=== PATIENT | male | born 1975 | race American Indian/Alaskan Native ===

== ENCOUNTER 2017-12-27 09:39 | Emergency (ER) | payer SELFPAY ==
[2017-12-27 10:25] LABS: Basophils % (Auto) 0.8 % (0.0-1.8); Eosinophils # (Auto) 0.4 K/mm3 (0.0-0.4); Eosinophils % (Auto) 8.5 % (0.0-4.3); Hematocrit 41.1 % (35.5-45.6); Hemoglobin 13.6 gm/dl (11.8-15.2); Lymphocytes # (Auto) 1.8 K/mm3 (1.2-5.4); Lymphocytes % (Auto) 40.4 % (13.4-35.0); Mean Corpuscular HGB Conc 33 % (32-34); Mean Corpuscular Hemoglobin 30 pg (28-32); Mean Corpuscular Volume 90 fl (84-94); Monocytes # (Auto) 0.7 K/mm3 (0.0-0.8); Monocytes % (Auto) 15.3 % (0.0-7.3); Platelet Count 186 K/mm3 (140-440); Red Blood Count 4.57 M/mm3 (3.65-5.03); Red Cell Distribution Width 14.2 % (13.2-15.2)
[2017-12-27 10:40] LABS: Alanine Aminotransferase 21 units/L (7-56); Albumin 4.1 g/dL (3.9-5); BUN/Creatinine Ratio 16; Blood Urea Nitrogen 11 mg/dL (9-20); Calcium 8.9 mg/dL (8.4-10.2); Hemolysis Index 3
[2017-12-27 11:17] LABS: Bilirubin,Urine NEG (Negative); Blood,Urine NEG (Negative); Color,Urine Yellow (Yellow); Protein,Urine <15 mg/dL mg/dL (Negative); RBC,Urine < 1.0 /HPF (0.0-6.0); Urobilinogen,Urine < 2.0 mg/dL (<2.0); WBC,Urine < 1.0 /HPF (0.0-6.0)
[2017-12-27] MEDS ORDERED: PROVENTIL IH ONE (11:44)
--- NOTE | 2017-12-27 11:55 | Emergency Department Report ---
ED Chest Pain HPI - General Chief Complaint: Abdominal Pain Stated Complaint: VOMITING BLOOD Time Seen by Provider: 12/27/17 11:23 Source: patient Mode of arrival: Wheelchair Limitations: No Limitations - History of Present Illness Initial Comments: 42-year-old male with no significant past medical history came in complaining of chest pain cough congestion. He states that he has been coughing and had some vomiting blood. Patient says that he's been having slight chest pain. He denies any nausea vomiting shortness of breath. He denies any belly pain. MD Complaint: chest pain Onset: during exertion Pain Location: left chest Pain Radiation: none Severity: mild Severity scale (0 -10): 1 Quality: aching Consistency: intermittent Improves With: nothing Worsens With: nothing Context: recent illness re: denies: nausea, vomting, diaphoresis, dyspnea, sense of impending doom Other Symptoms: cough (+ cough). denies: fever, syncope, rash, acid taste in mouth, leg swelling, palpitations, burping Treatments Prior to Arrival: none - Related Data Allergies Allergy/AdvReac Type Severity Reaction Status Date / Time Fish Containing Products Allergy Angioedema Verified 12/27/17 10:06 Heart Score - HEART Score History: Moderately suspicious EKG: Non-specific Age: < 45 Risk factors: 1-2 risk factors Troponin: 1-3x normal limit HEART Score: 4 ED Review of Systems ROS: Stated complaint: VOMITING BLOOD Other details as noted in HPI Constitutional: denies: chills, fever Eyes: denies: eye pain, eye discharge, vision change ENT: denies: ear pain, throat pain Respiratory: denies: cough, shortness of breath, wheezing Cardiovascular: denies: palpitations Endocrine: no symptoms reported Gastrointestinal: denies: abdominal pain, nausea, diarrhea Genitourinary: denies: urgency, dysuria Musculoskeletal: denies: back pain, joint swelling, arthralgia Skin: denies: rash, lesions Neurological: denies: headache, weakness, paresthesias Psychiatric: denies: anxiety, depression Hematological/Lymphatic: denies: easy bleeding, easy bruising ED Past Medical Hx - Past Medical History Previous Medical History?: No - Surgical History Past Surgical History?: No - Social History Smoking Status: Never Smoker ED Physical Exam - General Limitations: No Limitations General appearance: alert, in no apparent distress - Head Head exam: Present: atraumatic, normocephalic - Eye Eye exam: Present: normal appearance - ENT ENT exam: Present: mucous membranes moist - Neck Neck exam: Present: normal inspection - Respiratory Respiratory exam: Present: normal lung sounds bilaterally. Absent: respiratory distress - Expanded Respiratory Exam Expanded Location: Wheezes: Lower, Left, Right - Cardiovascular Cardiovascular Exam: Present: regular rate, normal rhythm. Absent: systolic murmur, diastolic murmur, rubs, gallop - GI/Abdominal GI/Abdominal exam: Present: soft, normal bowel sounds - Rectal Rectal exam: Present: deferred - Extremities Exam Extremities exam: Present: normal inspection - Back Exam Back exam: Present: normal inspection - Neurological Exam Neurological exam: Present: alert, oriented X3 - Psychiatric Psychiatric exam: Present: normal affect, normal mood - Skin Skin exam: Present: warm, dry, intact, normal color. Absent: rash ED Course Vital Signs 12/27/17 12/27/17 12/27/17 10:03 11:06 11:30 Temperature 98.7 F Pulse Rate 70 69 67 Pulse Rate [ Anterior Bilateral] Respiratory 16 15 21 Rate Respiratory Rate [Anterior Bilateral] Blood Pressure 160/95 145/76 O2 Sat by Pulse 98 97 96 Oximetry 12/27/17 12/27/17 12/27/17 12:00 12:36 12:44 Temperature Pulse Rate 62 68 Pulse Rate [ 65 Anterior Bilateral] Respiratory 16 11 L Rate Respiratory 18 Rate [Anterior Bilateral] Blood Pressure 145/76 145/76 O2 Sat by Pulse 98 99 Oximetry 12/27/17 12/27/17 13:00 13:30 Temperature Pulse Rate 73 69 Pulse Rate [ Anterior Bilateral] Respiratory 16 22 Rate Respiratory Rate [Anterior Bilateral] Blood Pressure 141/69 140/82 O2 Sat by Pulse 98 94 Oximetry ED Medical Decision Making - Lab Data Result diagrams: 12/27/17 10:09 12/27/17 10:09 - Medical Decision Making The patient is refusing admission. Patient's a complaint of chest pain and wants to go home. Patient will sign out AMA. All risks including explained. Critical care attestation.: If time is entered above; I have spent that time in minutes in the direct care of this critically ill patient, excluding procedure time. ED Disposition Clinical Impression: Chest pain, Upper respiratory infection Disposition: DC- LEFT AGAINST MED ADVICE Is pt being admited?: No Does the pt Need Aspirin: No Condition: Stable Instructions: Chest Pain (ED) Referrals: PRIMARY CARE, [Primary Care Provider] - 3-5 Days Forms: AMA Form Time of Disposition: 15:13
[2017-12-27 12:05] LABS: INR 0.91 (0.87-1.13)
[2017-12-27] MEDS ORDERED: BENADRYL ONE (12:12)
[2017-12-27] MEDS ORDERED: BENADRYL IV ONE (12:12)
--- NOTE | 2017-12-27 13:28 | Cat Scan Report ---
CTA CHEST: HISTORY: Rule out pulmonary embolus, pneumonia. COMPARISON: none. TECHNIQUE: Helical CT in 1.25mm intervals following IV contrast. Pulmonary embolus protocol. Sagittal and coronal reformatted images. Rotational MIP images. FINDINGS: Contrast bolus is satisfactory. No pulmonary embolus is identified. Thyroid gland: Normal. Tracheobronchial tree: Normal. Esophagus: Normal. Heart: Normal. Pericardium: Normal. Mediastinum: Normal. Lung Luu: normal. Pleural Spaces: Normal. Musculoskeletal: Normal. IMPRESSION: No evidence for pulmonary embolus. Unremarkable CT chest with contrast.
[2017-12-27 13:40] VITALS: BP 140/82
[2017-12-27] MEDS ORDERED: ZITHROMAX PO ONE (15:10)
== END 2017-12-27 15:44 | disposition left against medical advice (07) ==
LOC: ED 09:39
DX: R07.9 Chest pain, unspecified (principal); J06.9 Acute upper respiratory infection, unspecified; Z91.013 Allergy to seafood
CPT/HCPCS: 36415; 71275; 80053; 81001; 84484; 85025; 85610; 87116; 87400; 87430; 93005; 93010; 94640; 96374; 96375; 99284; J1200; J2930; Q9967

== ENCOUNTER 2018-10-28 08:34 | Emergency (ER) | payer SELFPAY ==
[2018-10-28 08:42] VITALS: BP 177/72
--- NOTE | 2018-10-28 09:52 | Emergency Department Report ---
ED ENT HPI - General Chief complaint: Dental/Oral Stated complaint: TOOTHACHE Time Seen by Provider: 10/28/18 09:37 Source: patient Mode of arrival: Ambulatory Limitations: No Limitations - History of Present Illness Initial comments: Patient is a 43-year-old [place] Citizen male who has pain at tooth #19 for the past 5 days. Patient states he's had some dental caries in this area however he's had intense pain for the last several days now swelling to the left side of his lower jaw. Patient denies any difficulty swallowing fevers chills nausea vomiting at this time. Patient states the pain is 9 out of 10 in severity. - Related Data Previous Rx's Medication Instructions Recorded Last Taken Type Clindamycin [Clindamycin CAP] 300 mg PO Q8H 7 Days cap 10/28/18 Unknown Rx HYDROcodone/APAP 5-325 [Wana 1 each PO Q4HR PRN #12 tablet 10/28/18 Unknown Rx 5/325] Ibuprofen [Motrin] 800 mg PO Q8HR PRN #20 tablet 10/28/18 Unknown Rx Allergies Allergy/AdvReac Type Severity Reaction Status Date / Time Fish Containing Products Allergy Angioedema Verified 12/27/17 10:06 seafood Allergy Swelling Uncoded 10/28/18 08:40 ED Dental HPI - General Chief complaint: Dental/Oral Stated complaint: TOOTHACHE Time Seen by Provider: 10/28/18 09:37 Source: patient Mode of arrival: Ambulatory Limitations: No Limitations - Related Data Previous Rx's Medication Instructions Recorded Last Taken Type Clindamycin [Clindamycin CAP] 300 mg PO Q8H 7 Days cap 10/28/18 Unknown Rx HYDROcodone/APAP 5-325 [Wana 1 each PO Q4HR PRN #12 tablet 10/28/18 Unknown Rx 5/325] Ibuprofen [Motrin] 800 mg PO Q8HR PRN #20 tablet 10/28/18 Unknown Rx Allergies Allergy/AdvReac Type Severity Reaction Status Date / Time Fish Containing Products Allergy Angioedema Verified 12/27/17 10:06 seafood Allergy Swelling Uncoded 10/28/18 08:40 ED Review of Systems ROS: Stated complaint: TOOTHACHE Other details as noted in HPI Comment: All other systems reviewed and negative ED Past Medical Hx - Past Medical History Previous Medical History?: No - Surgical History Past Surgical History?: No - Social History Smoking Status: Never Smoker Substance Use Type: None - Medications Home Medications: Home Medications Medication Instructions Recorded Confirmed Last Taken Type Clindamycin [Clindamycin CAP] 300 mg PO Q8H 7 Days cap 10/28/18 Unknown Rx HYDROcodone/APAP 5-325 [Wana 1 each PO Q4HR PRN #12 tablet 10/28/18 Unknown Rx 5/325] Ibuprofen [Motrin] 800 mg PO Q8HR PRN #20 tablet 10/28/18 Unknown Rx ED Physical Exam - General Limitations: No Limitations General appearance: alert, in no apparent distress - Head Head exam: Present: atraumatic, normocephalic - Eye Eye exam: Present: normal appearance - ENT ENT exam: Present: mucous membranes moist, other (patient has dental caries of tooth #19. There is some facial cellulitis present as well as pain with palpation to tooth #19 and some erythema and mild swelling to the gums.) - Neck Neck exam: Present: normal inspection - Respiratory Respiratory exam: Present: normal lung sounds bilaterally. Absent: respiratory distress - Cardiovascular Cardiovascular Exam: Present: regular rate, normal rhythm. Absent: systolic murmur, diastolic murmur, rubs, gallop - GI/Abdominal GI/Abdominal exam: Present: soft, normal bowel sounds - Rectal Rectal exam: Present: deferred - Extremities Exam Extremities exam: Present: normal inspection - Back Exam Back exam: Present: normal inspection - Neurological Exam Neurological exam: Present: alert, oriented X3 - Psychiatric Psychiatric exam: Present: normal affect, normal mood - Skin Skin exam: Present: warm, dry, intact, normal color. Absent: rash ED Course Vital Signs 10/28/18 08:40 Temperature 98.6 F Pulse Rate 78 Respiratory 20 Rate Blood Pressure 177/72 O2 Sat by Pulse 96 Oximetry ED Medical Decision Making - Medical Decision Making Patient with likely dental abscess. Patient started on antibiotics and given dental follow-up. Critical care attestation.: If time is entered above; I have spent that time in minutes in the direct care of this critically ill patient, excluding procedure time. ED Disposition Clinical Impression: Dental abscess, Facial cellulitis Disposition: TO HOME OR SELFCARE Is pt being admited?: No Does the pt Need Aspirin: No Condition: Stable Instructions: Dental Abscess (ED), Cellulitis (ED) Time of Disposition: 09:51
[2018-10-28] MEDS ORDERED: IBUPROFEN PO ONE (10:19)
[2018-10-28] MEDS ORDERED: IBUPROFEN ONE (10:19)
== END 2018-10-28 10:25 | disposition home or self-care (01) ==
LOC: ED 08:34
DX: K02.9 Dental caries, unspecified (principal); L03.211 Cellulitis of face; Z91.013 Allergy to seafood
CPT/HCPCS: 99282

== ENCOUNTER 2019-03-29 09:06 | Emergency (ER) | payer OTHER ==
[2019-03-29 09:11] VITALS: BP 167/91
[2019-03-29] MEDS ORDERED: LACTATED RINGERS 1,000 ML IV ONE (09:22)
[2019-03-29] MEDS ORDERED: ZOFRAN IV ONE (09:22)
[2019-03-29] MEDS ORDERED: LEVSIN SL SL ONE (09:22)
--- NOTE | 2019-03-29 09:24 | Emergency Department Report ---
ED Abdominal Pain HPI - General Chief Complaint: Abdominal Pain Stated Complaint: ABDOMINAL PAIN Time Seen by Provider: 03/29/19 09:21 Source: patient Mode of arrival: Ambulatory Limitations: No Limitations - History of Present Illness Initial Comments: and cramping, n/v/d since eating [employer]aco [place] four days ago no fever/urinary complaints MD Complaint: abdominal pain -: Gradual, days(s) (4) Location: diffuse Radiation: none Migration to: no migration Severity: moderate Severity scale (0 -10): 4 Quality: cramping, aching Consistency: constant Improves With: nothing Worsens With: nothing Associated Symptoms: nausea, vomiting, diarrhea - Related Data Previous Rx's Medication Instructions Recorded Last Taken Type Hyoscyamine Subl [Levsin Sl 0.125 0.125 mg SL Q6HR #12 tab 03/29/19 Unknown Rx TAB] Promethazine [Phenergan] 25 mg PO Q6HR PRN #12 tab 03/29/19 Unknown Rx metFORMIN [Glucophage] 500 mg PO BID #60 tablet 03/29/19 Unknown Rx traMADol [Ultram 50 MG tab] 50 mg PO Q6HR PRN #12 tablet 03/29/19 Unknown Rx Allergies Allergy/AdvReac Type Severity Reaction Status Date / Time Fish Containing Products Allergy Angioedema Verified 03/29/19 09:08 seafood Allergy Swelling Uncoded 10/28/18 08:40 ED Review of Systems ROS: Stated complaint: ABDOMINAL PAIN Other details as noted in HPI Comment: All other systems reviewed and negative Gastrointestinal: as per HPI ED Past Medical Hx - Past Medical History Previous Medical History?: No - Surgical History Past Surgical History?: No - Social History Smoking Status: Current Every Day Smoker - Medications Home Medications: Home Medications Medication Instructions Recorded Confirmed Last Taken Type Hyoscyamine Subl [Levsin Sl 0.125 0.125 mg SL Q6HR #12 tab 03/29/19 Unknown Rx TAB] Promethazine [Phenergan] 25 mg PO Q6HR PRN #12 tab 03/29/19 Unknown Rx metFORMIN [Glucophage] 500 mg PO BID #60 tablet 03/29/19 Unknown Rx traMADol [Ultram 50 MG tab] 50 mg PO Q6HR PRN #12 tablet 03/29/19 Unknown Rx ED Physical Exam - General Limitations: No Limitations General appearance: alert, in no apparent distress - Head Head exam: Present: atraumatic, normocephalic - Eye Eye exam: Present: normal appearance - ENT ENT exam: Present: mucous membranes dry - Neck Neck exam: Present: normal inspection. Absent: meningismus - Respiratory Respiratory exam: Present: normal lung sounds bilaterally. Absent: respiratory distress - Cardiovascular Cardiovascular Exam: Present: regular rate, normal rhythm. Absent: systolic murmur, diastolic murmur, rubs, gallop - GI/Abdominal GI/Abdominal exam: Present: soft, tenderness (mild diffuse), normal bowel sounds. Absent: distended, guarding, rebound, rigid - Rectal Rectal exam: Present: deferred - Extremities Exam Extremities exam: Present: normal inspection - Back Exam Back exam: Present: normal inspection - Neurological Exam Neurological exam: Present: alert, oriented X3 - Psychiatric Psychiatric exam: Present: normal affect, normal mood - Skin Skin exam: Present: warm, dry, intact, normal color. Absent: rash ED Course Vital Signs 03/29/19 09:10 Temperature 98 F Pulse Rate 75 Respiratory 18 Rate Blood Pressure 167/91 O2 Sat by Pulse 97 Oximetry - Reevaluation(s) Reevaluation #1: 03/29/19 10:02 advised on glucose, A1c pending now also notes some leg pain after a fall, proximal L tib/fib requesting x-ray ED Medical Decision Making - Lab Data Result diagrams: 03/29/19 09:25 03/29/19 09:25 - Radiology Data Radiology results: report reviewed, image reviewed normal KUB nonspecific sclerotic finding on plain film of leg but only seen on one view - Medical Decision Making nvd, cramping x 4 days labs pending, receiving IVF, zofran, levsin lengthy discussion regarding glucose control, monitoring, close f/u return precautions given nonspecific finding on leg x-ray, fx considered less likely and patient ambulatory, however splint/crutches offered and refused. encourage outpatient follow up - Differential Diagnosis gastroenteritis, colitis, dehydration, unlikely appendicitis Critical care attestation.: If time is entered above; I have spent that time in minutes in the direct care of this critically ill patient, excluding procedure time. ED Disposition Clinical Impression: Diabetes mellitus, new onset, Gastroenteritis Leg injury Qualifiers: Encounter type: initial encounter Laterality: left Qualified Code(s): S89.92XA - Unspecified injury of left lower leg, initial encounter Disposition: DC-01 TO HOME OR SELFCARE Is pt being admited?: No Condition: Good Instructions: Diabetes Mellitus Type 2 in Adults (ED), Food Poisoning (ED), How to Check Your Blood Sugar (ED) Additional Instructions: Your glucose today was 405. Your a1c is 12.8. This is indicative of new onset diabetes, uncontrolled. You are encouraged to monitor daily carbohydrate intake, obtain a glucose monitor and check your sugar daily. You will also be prescribed metformin- this should be taken twice daily. Keep log of glucose readings and obtain close follow up with a primary care provider within the next 5 days. Your leg x-ray showed a nonspecific sclerotic area only seen on one view. Would encourage orthopedic follow up for further evaluation. Prescriptions: metFORMIN [Glucophage] 500 mg PO BID #60 tablet Hyoscyamine Subl [Levsin Sl 0.125 TAB] 0.125 mg SL Q6HR #12 tab Promethazine [Phenergan] 25 mg PO Q6HR PRN #12 tab PRN Reason: Nausea traMADol [Ultram 50 MG tab] 50 mg PO Q6HR PRN #12 tablet PRN Reason: Pain Referrals: TACHO POSEY MD [Primary Care Provider] - 3-5 Days Time of Disposition: 12:04
[2019-03-29 09:33] LABS: Basophils % (Auto) 0.5 % (0.0-1.8); Eosinophils # (Auto) 0.1 K/mm3 (0.0-0.4); Eosinophils % (Auto) 2.3 % (0.0-4.3); Hemoglobin 15.1 gm/dl (11.8-15.2); Lymphocytes # (Auto) 1.7 K/mm3 (1.2-5.4); Lymphocytes % (Auto) 34.2 % (13.4-35.0); Mean Corpuscular HGB Conc 35 % (32-34); Mean Corpuscular Volume 91 fl (84-94); Monocytes # (Auto) 0.4 K/mm3 (0.0-0.8); Monocytes % (Auto) 9.1 % (0.0-7.3); Platelet Count 205 K/mm3 (140-440); Red Blood Count 4.73 M/mm3 (3.65-5.03); Red Cell Distribution Width 13.3 % (13.2-15.2)
[2019-03-29 09:50] LABS: Alanine Aminotransferase 16 units/L (7-56); Albumin 4.2 g/dL (3.9-5); BUN/Creatinine Ratio 13; Blood Urea Nitrogen 10 mg/dL (9-20); Calcium 9.1 mg/dL (8.4-10.2); Hemolysis Index 3
--- NOTE | 2019-03-29 11:03 | XRay Report ---
PROCEDURE: XR ABDOMEN 1V AP TECHNIQUE: Supine abdomen HISTORY: abd pain COMPARISON: None FINDINGS: The bowel gas pattern is nonspecific and nonobstructive. There is air and stool in normal caliber col on. There is minimal gas scattered in small bowel. There are no suspicious calcifications seen. There are some degenerative changes involving the hips. IMPRESSION: Nonspecific, nonobstructive abdomen. This document is electronically signed by Angy Smith MD., March 29 2019 11:00:59 AM ET
--- NOTE | 2019-03-29 11:47 | XRay Report ---
PROCEDURE: XR TIBIA FIBULA 2V LT TECHNIQUE: AP and lateral views of the left lower leg. HISTORY: leg pain, fall COMPARISON: None FINDINGS: There is no acute tibial or fibular fracture seen. Frontal view demonstrates some sclerotic change involving the proximal tibial shaft. This area is not included on the ktiic-lp-lead of the lateral image. Nevertheless suggests a benign finding. IMPRESSION: Some linear sclerotic change on the frontal image involving proximal tibia. This area no t included on the lateral view. Unless this is the region of patient's pain, significance is doubtful . Correlate clinically. This document is electronically signed by Angy Smith MD., March 29 2019 11:45:45 AM ET
== END 2019-03-29 12:20 | disposition home or self-care (01) ==
LOC: ED 09:06
DX: S89.92XA Unspecified injury of left lower leg, initial encounter (principal); K52.9 Noninfective gastroenteritis and colitis, unspecified; E11.9 Type 2 diabetes mellitus without complications; F17.200 Nicotine dependence, unspecified, uncomplicated; Z91.013 Allergy to seafood; X58.XXXA Exposure to other specified factors, initial encounter; Y93.89 Activity, other specified; Y92.89 Other specified places as the place of occurrence of the external cause; Y99.8 Other external cause status
CPT/HCPCS: 36415; 73590; 74018; 80053; 83036; 83690; 85025; 96361; 96374; 99284; J2405; J7120

== ENCOUNTER 2019-07-10 11:43 | Emergency (ER) | payer SELFPAY ==
[2019-07-10 12:06] VITALS: BP 156/90
--- NOTE | 2019-07-10 12:07 | Event Note ---
ED Screening Note Date of service: 07/10/19 Time: 12:03 ED Screening Note: 44 y/o male c/o left knee pain times 1.5 months. Took Advail for pain. This initial assessment/diagnostic orders/clinical plan/treatment(s) is/are subject to change based on patients health status, clinical progression and re- assessment by fellow clinical providers in the ED. Further treatment and workup at subsequent clinical providers discretion. Patient/guardian urged not to elope from the ED as their condition may be serious if not clinically assessed and managed. Initial orders include:
--- NOTE | 2019-07-10 12:34 | XRay Report ---
LEFT KNEE, 3 VIEWS INDICATION: left knee pain. COMPARISON: None. IMPRESSION: No acute osseous or soft tissue abnormality. No significant degenerative joint diseas e. Prominent spurs/enthesophytes are noted along the superior and inferior borders of the patella. Signer Name: Germain Siegel Jr, MD Signed: 07/10/2019 12:29 PM Workstation Name: [id number]
--- NOTE | 2019-07-10 13:02 | Emergency Department Report ---
ED Lower Extremity HPI - General Chief Complaint: Extremity Problem,Nontraumatic Stated Complaint: LT KNEE PAIN Time Seen by Provider: 07/10/19 12:03 Source: patient Mode of arrival: Ambulatory Limitations: No Limitations - History of Present Illness Initial Comments: Mr. Jay is a healthy 44-year-old male without significant past medical history who presents with 3 weeks of left knee pain. No injury. Mild swelling. 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 He also has abnormal growth on his toenail of the left big toe. MD Complaint: other (left knee pain) -: week(s) (3) Injury: Knee: Left Type of Injury: unknown Place: home, work Severity: moderate Severity scale (0 -10): 6 Improves With: nothing Worsens With: nothing Context: other (no direct injury, gradual onset for the past 3 weeks) Associated Symptoms: ambulatory - Related Data Previous Rx's Medication Instructions Recorded Last Taken Type Hyoscyamine Subl [Levsin Sl 0.125 0.125 mg SL Q6HR #12 tab 03/29/19 Unknown Rx TAB] Promethazine [Phenergan] 25 mg PO Q6HR PRN #12 tab 03/29/19 Unknown Rx metFORMIN [Glucophage] 500 mg PO BID #60 tablet 03/29/19 Unknown Rx traMADol [Ultram 50 MG tab] 50 mg PO Q6HR PRN #12 tablet 03/29/19 Unknown Rx Allergies Allergy/AdvReac Type Severity Reaction Status Date / Time Fish Containing Products Allergy Angioedema Verified 03/29/19 09:08 seafood Allergy Swelling Uncoded 10/28/18 08:40 ED Review of Systems ROS: Stated complaint: LT KNEE PAIN Other details as noted in HPI Constitutional: denies: fever, malaise Respiratory: denies: shortness of breath Cardiovascular: denies: chest pain Musculoskeletal: arthralgia Skin: rash, lesions, change in hair/nails ED Past Medical Hx - Past Medical History Previous Medical History?: No - Surgical History Past Surgical History?: No - Social History Smoking Status: Never Smoker Substance Use Type: None - Medications Home Medications: Home Medications Medication Instructions Recorded Confirmed Last Taken Type Hyoscyamine Subl [Levsin Sl 0.125 0.125 mg SL Q6HR #12 tab 03/29/19 Unknown Rx TAB] Promethazine [Phenergan] 25 mg PO Q6HR PRN #12 tab 03/29/19 Unknown Rx metFORMIN [Glucophage] 500 mg PO BID #60 tablet 03/29/19 Unknown Rx traMADol [Ultram 50 MG tab] 50 mg PO Q6HR PRN #12 tablet 03/29/19 Unknown Rx ED Physical Exam - General Limitations: No Limitations General appearance: alert, in no apparent distress - Head Head exam: Present: atraumatic, normocephalic - Eye Eye exam: Present: normal appearance - Respiratory Respiratory exam: Absent: respiratory distress - Extremities Exam Extremities exam: Present: other (left knee: Small amount of swelling small effusion full range of motion extension and flexion no laxity no erythema no warmth) - Neurological Exam Neurological exam: Present: alert, oriented X3 - Psychiatric Psychiatric exam: Present: normal affect, normal mood - Skin Skin exam: Present: warm, dry, intact, normal color ED Course Vital Signs 07/10/19 12:03 Temperature 98.4 F Pulse Rate 65 Respiratory 16 Rate Blood Pressure 156/90 O2 Sat by Pulse 99 Oximetry ED Lower Extremity MDM - Radiology Data Radiology results: report reviewed Radiology impression: Left knee radiographs bone spurs at the patella no fracture or acute abnormality otherwise no other degenerative changes - Medical Decision Making Left knee pain and mild swelling differential diagnosis includes cartilage injury meniscus derangement versus arthritis Left great toe onychomycosis referred to ankle desktop support specialist Critical care attestation.: If time is entered above; I have spent that time in minutes in the direct care o f this critically ill patient, excluding procedure time. ED Disposition Clinical Impression: Left knee pain, Onychomycosis of left great toe Disposition: - TO HOME OR SELFCARE Is pt being admited?: No Does the pt Need Aspirin: No Condition: Stable Instructions: Knee Pain (ED) Additional Instructions: you have a fungal infection of the ear left great toe. You will need to see an ankle and desktop support specialist. Please use the referral provided. Referrals: BOBBY TIRADO MD [Staff Physician] - 3-5 Days DOREEN CERVANTES DPM [Staff Physician] - 3-5 Days Forms: Work/School Release Form(ED)
== END 2019-07-10 13:52 | disposition home or self-care (01) ==
LOC: ED 11:43
DX: M25.562 Pain in left knee (principal); B35.1 Tinea unguium; Z91.013 Allergy to seafood

== ENCOUNTER 2019-10-24 12:30 | Emergency (ER) | payer SELFPAY ==
[2019-10-24 13:19] VITALS: BP 159/92
--- NOTE | 2019-10-24 13:19 | Emergency Department Report ---
Chief Complaint: High BP Stated Complaint: HIGH BP Time Seen by Provider: 10/24/19 13:11 - HPI History of Present Illness: This is a 44 y.o. M. that presents to the ER with elevated blood pressure. 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 He ran out blood pressure medicine 1 week ago. He no longer have a PCP for follow up. Denies chest pain, palpitations, shortness of breath, headache, dizziness, or visual changes. - Exam Vital Signs: Vital Signs 10/24/19 13:12 Temperature 98.5 F Pulse Rate 66 Respiratory 16 Rate Blood Pressure 159/92 O2 Sat by Pulse 99 Oximetry MSE screening note: Focused history and physical exam performed. Due to findings the following was ordered: ED Disposition for MSE Disposition: DC-01 TO HOME OR SELFCARE Is pt being admited?: No Condition: Stable
--- NOTE | 2019-10-24 14:12 | Emergency Department Report ---
Chief Complaint: High BP Stated Complaint: HIGH BP Time Seen by Provider: 10/24/19 13:11 - HPI History of Present Illness: Mr. Jay is a 44-year-old male with history of diabetes mellitus and hypertension who desires refill of his blood pressure medication. He is currently symptom-free. He does not currently have a nosebleed which resolved spontaneously on yesterday. I referred him to the outpatient clinic. He currently does not have a life or limb threatening condition. Medical screening exam completed. - Exam Vital Signs: Vital Signs 10/24/19 13:12 Temperature 98.5 F Pulse Rate 66 Respiratory 16 Rate Blood Pressure 159/92 O2 Sat by Pulse 99 Oximetry MSE screening note: Focused history and physical exam performed. Due to findings the following was ordered: ED Disposition for MSE Clinical Impression: Hypertension Disposition: Z-07 MED SCREENING EXAM-LEFT Condition: Stable Additional Instructions: Please see Dr. Arceo for a refill of your blood pressure and diabetes medications. Referrals: AAYUSH ARCEO MD [Staff Physician] - 3-5 Days
== END 2019-10-24 14:30 | disposition left against medical advice (07) ==
LOC: ED 12:30
DX: I10 Essential (primary) hypertension (principal); Z76.0 Encounter for issue of repeat prescription; E11.9 Type 2 diabetes mellitus without complications
CPT/HCPCS: 82962; 99282

== ENCOUNTER 2019-12-09 08:32 | Emergency (ER) | payer SELFPAY ==
--- NOTE | 2019-12-09 10:27 | Emergency Department Report ---
Chief Complaint: Upper Respiratory Infection Stated Complaint: FLU Time Seen by Provider: 12/09/19 10:21 - HPI History of Present Illness: 44-year-old -[place] male presents to the emergency room for cough that he has had intermittently for 2 weeks. Patient has not taken anything but Lemus's cough drops. Patient denies any fever chills no nausea no vomiting no sweating note recent travels. - Exam Physical Exam: Gen: alert oriented NAD Cardic: regular rate and rhythm no murmurs appreciated Resp: Clear to auscultation bilateral no wheezing no rales or rhonchi. Abdomen: Soft nontender nondistended normal bowel sounds. MSE screening note: Focused history and physical exam performed. Due to findings the following was ordered: 44-year-old -[place] male presents to the emergency room for cough that he has had intermittently for 2 weeks. Patient has not taken anything but Lemus's cough drops. Patient denies any fever chills no nausea no vomiting no sweating note recent travels. Commend patient to take oeld-gvo-oahvint Robitussin or Mucinex for cough and to follow-up with a primary care provider. ED Disposition for MSE Clinical Impression: Cough Disposition: Z-07 MED SCREENING EXAM-LEFT Is pt being admited?: No Does the pt Need Aspirin: No Condition: Stable Instructions: Guaifenesin (By mouth) Additional Instructions: Recommend [id number] Robitussin or Mucinex increase your vitamin C follow- up with your primary care provider. Referrals: PRIMARY FRANTZ, [Primary Care Provider] - 3-5 Days AAYUSH GARCIA MD [Staff Physician] - 3-5 Days
[2019-12-09 10:40] VITALS: BP 158/92
== END 2019-12-09 10:39 | disposition left against medical advice (07) ==
LOC: ED 08:32
DX: R05 Cough (principal); I10 Essential (primary) hypertension; Z91.013 Allergy to seafood
CPT/HCPCS: 99282

== ENCOUNTER 2020-02-02 08:04 | Emergency (ER) | payer SELFPAY ==
[2020-02-02 08:18] VITALS: BP 168/94
--- NOTE | 2020-02-02 08:32 | Emergency Department Report ---
<SHANTI MURRELL - Last Filed: 02/02/20 08:34> ED General Adult HPI - General Chief complaint: Dental/Oral Stated complaint: LEFT SIDE FACE SWELLING Time Seen by Provider: 02/02/20 08:21 Source: patient Mode of arrival: Ambulatory Limitations: No Limitations - History of Present Illness Initial comments: 44-year-old -Green[place] male presents to the emergency room for left-sided facial swelling and pain for 5 days. Patient reports he is unaware of any dental issues. Patient states that the swelling is from his nose to under his eyes and to the up with his cheek. Patient reports pain when you palpate just under his nose. Patient reports that he took Benadryl last dose was on Sunday. Review patient's chart I noticed that patient was diagnosed with diabetes but patient has not taken any medications in about 8 months. Patient states that he never followed up after he ran out of prescriptions. It was noted that patient's blood sugar was 298 on a fingerstick here. Onset/Timin -: days(s) Location: face Severity scale (0 -10): 8 Quality: aching Consistency: constant Improves with: none Worsens with: none Treatments Prior to Arrival: none - Related Data Previous Rx's Medication Instructions Recorded Last Taken Type Hyoscyamine Subl [Levsin Sl 0.125 0.125 mg SL Q6HR #12 tab 03/29/19 Unknown Rx TAB] Promethazine [Phenergan] 25 mg PO Q6HR PRN #12 tab 03/29/19 Unknown Rx traMADoL [Ultram 50 MG tab] 50 mg PO Q6HR PRN #12 tablet 03/29/19 Unknown Rx Clindamycin [Clindamycin CAP] 300 mg PO Q8H 10 Days #30 capsule 02/02/20 Unknown Rx metFORMIN [Glucophage] 500 mg PO BID #60 tablet 02/02/20 Unknown Rx Allergies Allergy/AdvReac Type Severity Reaction Status Date / Time Fish Containing Products Allergy Angioedema Verified 03/29/19 09:08 seafood Allergy Swelling Uncoded 10/28/18 08:40 ED Review of Systems Comment: All other systems reviewed and negative ED Past Medical Hx - Past Medical History Previous Medical History?: Yes Hx Hypertension: Yes - Surgical History Past Surgical History?: No - Social History Smoking Status: Never Smoker Substance Use Type: None - Medications Home Medications: Home Medications Medication Instructions Recorded Confirmed Last Taken Type Hyoscyamine Subl [Levsin Sl 0.125 0.125 mg SL Q6HR #12 tab 03/29/19 Unknown Rx TAB] Promethazine [Phenergan] 25 mg PO Q6HR PRN #12 tab 03/29/19 Unknown Rx traMADoL [Ultram 50 MG tab] 50 mg PO Q6HR PRN #12 tablet 03/29/19 Unknown Rx Clindamycin [Clindamycin CAP] 300 mg PO Q8H 10 Days #30 capsule 02/02/20 Unknown Rx metFORMIN [Glucophage] 500 mg PO BID #60 tablet 02/02/20 Unknown Rx ED Physical Exam - General Limitations: No Limitations ED Medical Decision Making - Medical Decision Making 44-year-old -[place]ic male presents to the emergency room for left-sided facial swelling and pain for 5 days. Patient reports he is unaware of any dental issues. Patient states that the swelling is from his nose to under his eyes and to the up with his cheek. Patient reports pain when you palpate just under his nose. Patient reports that he took Benadryl last dose was on Sunday. Review patient's chart I noticed that patient was diagnosed with diabetes but patient has not taken any medications in about 8 months. Patient states that he never followed up after he ran out of prescriptions. It was noted that patient's blood sugar was 298 on a fingerstick here. Case review with Dr. Jackson supervising physician. She came to evaluate patient she agrees with my plan patient be discharged with specific orders. Patient will be placed on clindamycin 300 mg 3 times daily for 10 days. Patient will be restarted back on his metformin 500 mg twice daily and instructed to follow-up with Dr. Gianfranco Magana internal medicine provider. Education on a significance of having diabetes and increased risk for heart attack strokes end- stage renal disease that can lead to dialysis as well as increased infections. Patient can take Tylenol or ibuprofen as needed for pain management. 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 Take your diabetes medicine which is metformin as prescribed. It is very important for you to follow-up with a primary care provider before your prescription runs out. You can take ibuprofen as needed for pain management. Increase your water intake. Avoid drinking alcohol, sodas, juices and follow a low carbohydrate diet. Prescriptions: Clindamycin [Clindamycin CAP] 300 mg PO Q8H 10 Days #30 capsule metFORMIN [Glucophage] 500 mg PO BID #60 tablet Referrals: PRIMARY MD FRANTZ [Primary Care Provider] - 3-5 Days AAYUSH GARCIA MD [Staff Physician] - 3-5 Days Forms: Work/School Release Form(ED) <FOUZIA JACKSON - Last Filed: 02/05/20 06:49> ED Review of Systems ROS: Stated complaint: LEFT SIDE FACE SWELLING Other details as noted in HPI ED Physical Exam - Other Other exam information: focused exam preformed by id face/head exam: pt has a focal erythematous indurated raised/nodular area just at the entrance of the left nostril that is tender to palpation. No fluctuance or drainage. Patient does have mild left-sided facial swelling adjacent to the nose and infraorbital area that does not have erythema or significant tenderness to this area.. Is likely that this area is source of infection and does not appear to be fluctuant at that time. Warm compress advised with antibiotics and restarting metformin. Patient denies fever. Last tetanus unknown. Tetanus provided as well. Pt may require drainage of the area in the future ED Course Vital Signs 02/02/20 08:15 Temperature 98.7 F Pulse Rate 67 Respiratory 16 Rate Blood Pressure 168/94 O2 Sat by Pulse 98 Oximetry ED Medical Decision Making - Medical Decision Making focused exam preformed by id face/head exam: pt has a focal erythematous indurated raised/nodular area just at the entrance of the left nostril that is tender to palpation. No fluctuance or drainage. Patient does have mild left-sided facial swelling adjacent to the nose and infraorbital area that does not have erythema or significant tenderness to this area.. Is likely that this area is source of infection and does not appear to be fluctuant at that time. Warm compress advised with antibiotics and restarting metformin. Patient denies fever. Last tetanus unknown. Tetanus provided as well. Pt may require drainage of the area in the future Critical care attestation.: If time is entered above; I have spent that time in minutes in the direct care of this critically ill patient, excluding procedure time.
[2020-02-02] MEDS ORDERED: CLINDAMYCIN 300 MG CAP PO ONE (08:46)
[2020-02-02] MEDS ORDERED: metFORMIN 500 MG TAB PO ONE (08:46)
[2020-02-02] MEDS ORDERED: DIPHtheria,PERTUSSIS(ACELL),TETANUS VACCINE/PF 0.5 ML VIAL IM ONE (08:48)
[2020-02-02] MEDS ORDERED: IBUPROFEN 600 MG TAB PO ONE (08:50)
== END 2020-02-02 09:25 | disposition home or self-care (01) ==
LOC: ED 08:04
DX: R22.0 Localized swelling, mass and lump, head (principal); J34.89 Other specified disorders of nose and nasal sinuses; I10 Essential (primary) hypertension; Z79.2 Long term (current) use of antibiotics; Z79.899 Other long term (current) drug therapy; Z91.013 Allergy to seafood
CPT/HCPCS: 82962; 90471; 90715; 99282

== ENCOUNTER 2020-12-23 13:04 | Emergency (ER) | payer MEDICAID ==
--- NOTE | 2020-12-23 13:45 | Event Note ---
ED Screening Note Date of service: 12/23/20 Time: 13:45 ED Screening Note: 45-year-old -Nepalese male with a past medical history hypertension CVA presents to the emergency room for painful urination with bleeding. Patient has his medications with him. This initial assessment/diagnostic orders/clinical plan/treatment(s) is/are subject to change based on patients health status, clinical progression and re- assessment by fellow clinical providers in the ED. Further treatment and workup at subsequent clinical providers discretion. Patient/guardian urged not to elope from the ED as their condition may be serious if not clinically assessed and managed. Initial orders include:
[2020-12-23 14:24] LABS: Bilirubin,Urine NEG (Negative); Blood,Urine MOD (Negative); Color,Urine Yellow (Yellow); Mucus,Urine FEW /HPF; Protein,Urine <15 mg/dL mg/dL (Negative)
[2020-12-23] MEDS ORDERED: HYDROcodone/ACETAMINOPHEN 5-325 MG TAB PO ONE (17:24)
--- NOTE | 2020-12-23 17:27 | Emergency Department Report ---
ED General Adult HPI - General Chief complaint: Back Pain/Injury Stated complaint: BACK/GINO LEG PAIN/PELVIC PAIN Time Seen by Provider: 12/23/20 17:06 Source: patient Mode of arrival: Ambulatory Limitations: Physical Limitation - History of Present Illness Initial comments: This is a 45-year-old type II diabetic male with a history of previous stroke. He appears to be frustrated and somewhat emotionally labile and impatient. He tells me that he went to his primary care doctor who "did not give him anything for pain". He states he has been having back pain for least 3 weeks. Apparently his medical screening exam already included a swab for GC and chlamydia. Urinalysis has returned showing greater than 500 glucose, 4 RBCs and 13 WBCs. He states that over the last few days he has had dysuria and blood in his urine. He is very difficult historian due to some dysarthria/lability issues as above described. -: days(s), week(s) Location: back Radiation: non-radiation Quality: aching Consistency: intermittent Improves with: none Worsens with: none Associated Symptoms: denies other symptoms (Except as above described) - Related Data Previous Rx's Medication Instructions Recorded Last Taken Type Hyoscyamine Subl [Levsin Sl 0.125 0.125 mg SL Q6HR #12 tab 03/29/19 Unknown Rx TAB] Promethazine [Phenergan] 25 mg PO Q6HR PRN #12 tab 03/29/19 Unknown Rx Clindamycin [Clindamycin CAP] 300 mg PO Q8H 10 Days #30 capsule 02/02/20 Unknown Rx metFORMIN [Glucophage] 500 mg PO BID #60 tablet 02/02/20 Unknown Rx cefUROXime [Ceftin] 250 mg PO Q12H #14 tablet 12/23/20 Unknown Rx traMADoL [Ultram 50 MG tab] 50 mg PO Q6HR PRN #12 tablet 12/23/20 Unknown Rx Allergies Allergy/AdvReac Type Severity Reaction Status Date / Time Fish Containing Products Allergy Angioedema Verified 12/23/20 13:22 seafood AdvReac Unknown Swelling Uncoded 12/23/20 13:22 ED Review of Systems ROS: Stated complaint: BACK/GINO LEG PAIN/PELVIC PAIN Other details as noted in HPI Comment: Unobtainable due to pts medical conditions (Limited due to dysarthria/CVA) Constitutional: denies: chills, fever Respiratory: denies: cough, orthopnea, shortness of breath Cardiovascular: denies: chest pain, edema Gastrointestinal: denies: abdominal pain, nausea, vomiting Neurological: denies: headache, weakness, numbness Psychiatric: as per HPI ED Past Medical Hx - Past Medical History Hx Hypertension: Yes - Social History Smoking Status: Never Smoker Substance Use Type: None - Medications Home Medications: Home Medications Medication Instructions Recorded Confirmed Last Taken Type Hyoscyamine Subl [Levsin Sl 0.125 0.125 mg SL Q6HR #12 tab 03/29/19 Unknown Rx TAB] Promethazine [Phenergan] 25 mg PO Q6HR PRN #12 tab 03/29/19 Unknown Rx Clindamycin [Clindamycin CAP] 300 mg PO Q8H 10 Days #30 capsule 02/02/20 Unknown Rx metFORMIN [Glucophage] 500 mg PO BID #60 tablet 02/02/20 Unknown Rx cefUROXime [Ceftin] 250 mg PO Q12H #14 tablet 12/23/20 Unknown Rx traMADoL [Ultram 50 MG tab] 50 mg PO Q6HR PRN #12 tablet 12/23/20 Unknown Rx ED Physical Exam - General Limitations: Physical Limitation General appearance: alert, in no apparent distress, obese - Head Head exam: Present: atraumatic, normocephalic - Eye Eye exam: Present: normal appearance. Absent: scleral icterus - ENT ENT exam: Present: mucous membranes moist - Neck Neck exam: Present: normal inspection. Absent: meningismus - Respiratory Respiratory exam: Present: normal lung sounds bilaterally. Absent: respiratory distress - Cardiovascular Cardiovascular Exam: Present: regular rate, normal rhythm. Absent: systolic murmur, diastolic murmur, rubs, gallop - GI/Abdominal GI/Abdominal exam: Present: soft, normal bowel sounds. Absent: distended, tenderness, guarding, rebound, rigid - Rectal Rectal exam: Present: deferred - Extremities Exam Extremities exam: Present: normal inspection - Back Exam Back exam: Present: normal inspection. Absent: CVA tenderness (R), CVA tenderness (L), muscle spasm, paraspinal tenderness, vertebral tenderness - Neurological Exam Neurological exam: Present: alert, oriented X3, other (Partial left facial paresis, dysarthria, no acute focal deficit) - Psychiatric Psychiatric exam: Present: agitated, flat affect - Skin Skin exam: Present: warm, dry, intact, normal color. Absent: rash ED Course Vital Signs 12/23/20 12/23/20 13:20 17:42 Temperature 99.0 F Pulse Rate 68 64 Respiratory 18 16 Rate Blood Pressure 146/74 Blood Pressure 146/72 [Left] O2 Sat by Pulse 98 98 Oximetry ED Medical Decision Making - Lab Data Result diagrams: 12/23/20 17:32 12/23/20 17:32 Laboratory Results - last 24 hr 12/23/20 12/23/20 12/23/20 17:32 17:32 Unknown WBC 5.7 RBC 3.99 Hgb 12.5 Hct 35.9 MCV 90 MCH 31 MCHC 35 H RDW 13.9 Plt Count 175 Lymph % (Auto) 46.7 H [place] % (Auto) 9.6 H Eos % (Auto) 3.7 Baso % (Auto) 0.3 Lymph # (Auto) 2.7 [place] # (Auto) 0.5 Eos # (Auto) 0.2 Baso # (Auto) 0.0 Seg Neutrophils % 39.7 L Seg Neutrophils # 2.3 Sodium 137 Potassium 3.9 Chloride 100.0 Carbon Dioxide 32 H Anion Gap 9 BUN 11 Creatinine 0.9 Estimated GFR > 60 BUN/Creatinine Ratio 12 Glucose 280 H Calcium 8.9 Urine Color Yellow Urine Turbidity Clear Urine pH 5.0 [address] Specific [employer] 1.023 Urine Protein <15 mg/dl Urine Glucose (UA) >=500 Urine Ketones Neg Urine Blood Mod Urine Nitrite Neg Urine Bilirubin Neg Urine Urobilinogen 4.0 Ur Leukocyte Esterase Neg Urine WBC (Auto) 4.0 Urine RBC (Auto) 13.0 U Epithel Cells (Auto) 1.0 Urine Mucus Few - Radiology Data Radiology results: report reviewed (CT of the abdomen and pelvis showed no acute process) Critical care attestation.: If time is entered above; I have spent that time in minutes in the direct care of this critically ill patient, excluding procedure time. ED Disposition Clinical Impression: Acute cystitis Qualifiers: Hematuria presence: with hematuria Qualified Code(s): N30.01 - Acute cystitis with hematuria Back pain Qualifiers: Back pain location: low back pain Chronicity: chronic Back pain laterality: bilateral Sciatica presence: without sciatica Qualified Code(s): M54.5 - Low back pain; G89.29 - Other chronic pain Hyperglycemia due to type 2 diabetes mellitus Qualifiers: Diabetes mellitus alf insulin use: without alf use Qualified Code(s): E11.65 - Type 2 diabetes mellitus with hyperglycemia Disposition: DC- TO HOME OR SELFCARE Is pt being admited?: No Does the pt Need Aspirin: No Condition: Stable Instructions: Diabetes Mellitus Type 2 in Adults (ED), Urinary Tract Infection, Adult, [id number], Back Injury Prevention, Blood Glucose Monitoring, Adult Additional Instructions: Follow-up with your clinic. Follow-up on your urine culture test which takes 2 to 3 days to complete. Avoid sugary drinks with your diabetes. Monitor your sugar. Rx as directed. Return fever chills or any acute change or problem. Prescriptions: cefUROXime [Ceftin] 250 mg PO Q12H #14 tablet traMADoL [Ultram 50 MG tab] 50 mg PO Q6HR PRN #12 tablet PRN Reason: Pain Referrals: PRIMARY CARE, [Primary Care Provider] - 3-5 Days [facility] [Other] - 3-5 Days Time of Disposition: 18:42
[2020-12-23] MEDS ORDERED: LORazepam 1 MG TAB PO ONE (17:29)
[2020-12-23 17:53] LABS: Basophils % (Auto) 0.3 % (0.0-1.8); Eosinophils # (Auto) 0.2 K/mm3 (0.0-0.4); Eosinophils % (Auto) 3.7 % (0.0-4.3); Hematocrit 35.9 % (35.5-45.6); Hemoglobin 12.5 gm/dl (11.8-15.2); Lymphocytes # (Auto) 2.7 K/mm3 (1.2-5.4); Lymphocytes % (Auto) 46.7 % (13.4-35.0); Mean Corpuscular HGB Conc 35 % (32-34); Mean Corpuscular Volume 90 fl (84-94); Monocytes # (Auto) 0.5 K/mm3 (0.0-0.8); Monocytes % (Auto) 9.6 % (0.0-7.3); Platelet Count 175 K/mm3 (140-440); Red Blood Count 3.99 M/mm3 (3.65-5.03); Red Cell Distribution Width 13.9 % (13.2-15.2)
[2020-12-23 18:05] LABS: BUN/Creatinine Ratio 12; Blood Urea Nitrogen 11 mg/dL (9-20); Calcium 8.9 mg/dL (8.4-10.2); Hemolysis Index 8
--- NOTE | 2020-12-23 18:06 | Cat Scan Report ---
CT ABDOMEN PELVIS WITHOUT CONTRAST INDICATION / CLINICAL INFORMATION: abd pain. TECHNIQUE: Axial CT images were obtained through the abdomen and pelvis without IV contrast. All CT scans at [facility] location are performed using CT dose reduction for ALARA by means of automated exposure control. COMPARISON: None available. FINDINGS: LOWER CHEST: No significant abnormality. LIVER: No significant abnormality. GALLBLADDER: No significant abnormality. BILE DUCTS: No significant abnormality. PANCREAS: No significant abnormality. SPLEEN: No significant abnormality. ADRENALS: No significant abnormality. RIGHT KIDNEY and URETER: No significant abnormality. LEFT KIDNEY and URETER: No significant abnormality. STOMACH and SMALL BOWEL: No significant abnormality. COLON: No significant abnormality. APPENDIX: No significant abnormality. PERITONEUM: No free fluid. No free air. No fluid collection. LYMPH NODES: No significant adenopathy. AORTA and ARTERIES: No significant abnormality. IVC and VEINS: No significant abnormality. URINARY BLADDER: No significant abnormality. REPRODUCTIVE ORGANS: No significant abnormality ADDITIONAL FINDINGS: None. SKELETAL SYSTEM: No significant abnormality. IMPRESSION: 1. No significant abnormality. Signer Name: Vivek Zamora MD Signed: 12/23/2020 6:01 PM Workstation Name: [id number]
[2020-12-23] MEDS ORDERED: LIDOCAINE-MPF (1%) 10 MG/1 ML VIAL 5 ML INFILTRATI ONE (18:39)
[2020-12-23 19:54] VITALS: BP 148/71
== END 2020-12-23 19:52 | disposition home or self-care (01) ==
LOC: ED 13:04
DX: N30.00 Acute cystitis without hematuria (principal); E11.65 Type 2 diabetes mellitus with hyperglycemia; I10 Essential (primary) hypertension; Z79.2 Long term (current) use of antibiotics; Z79.84 Long term (current) use of oral hypoglycemic drugs; Z79.899 Other long term (current) drug therapy; Z91.013 Allergy to seafood
CPT/HCPCS: 36415; 74176; 80048; 81001; 85025; 87086; 87591; 96372; 99284; J0696